=== PATIENT | female | born 1970 | race Caucasian/White ===

== ENCOUNTER 2018-12-03 06:44 | Emergency (ER) | payer BC ==
[~2018-12-03] VITALS: Ht 160 cm; Wt 70.5 kg
[2018-12-03 06:56] VITALS: Ht 160 cm; Wt 70.5 kg
[2018-12-03 08:05] VITALS: BP 114/44
[2018-12-03 08:12] LABS: UA SPECIFIC GRAVITY 1.025 (1.005-1.035); microscopic required? YES; urine erythrocyte 2+ (NEGATIVE)
== END 2018-12-03 08:05 | disposition home or self-care (01) ==
LOC: ED 06:44
PROVIDERS: Specialist
DX: N39.0 Urinary tract infection, site not specified (principal); Z88.6 Allergy status to analgesic agent
CPT/HCPCS: J0696